=== PATIENT | female | born 1995 | race Caucasian/White ===

== ENCOUNTER 2018-06-27 20:34 | Emergency (ER) | payer OTHER ==
[~2018-06-27] VITALS: Ht 160 cm; Wt 103.9 kg
[2018-06-27 20:41] VITALS: BP 140/90
--- NOTE | 2018-06-27 20:41 | NUR ---
TO BED # 12 AMBULATORY , REPORT GIVEN TO ANTONIETA ERICKSON
--- NOTE | 2018-06-27 20:50 | NUR ---
23/F PRESENTS TO ED, C/O L ANKLE PAIN, S/P L ANKLE INVERSION WHILE STEPPING DOWN STEPS IN [place], [id number]. L ANKLE WITH MILD SWELLING, -REDNESS, -ECCYMOSIS, ABLE TO BEAR WEIGHT, +CMS HX ANXIETY RX PAXIL OTC PAIN MED WITH LITTLE RELIEF.
[2018-06-27] MEDS ORDERED: KETOROLAC 30 MG/ML VIAL IM ONE (21:20)
[2018-06-27 21:45] VITALS: BP 131/52
== END 2018-06-27 21:45 | disposition home or self-care (01) ==
LOC: MED 20:34
DX: S93.402A Sprain of unspecified ligament of left ankle, initial encounter (principal); X58.XXXA Exposure to other specified factors, initial encounter; Y93.89 Activity, other specified; Y92.89 Other specified places as the place of occurrence of the external cause; Y99.8 Other external cause status
CPT/HCPCS: 73610; 96372; 99283; J1885; Q0092

== ENCOUNTER 2019-07-22 18:47 | Emergency (ER) | payer OTHER ==
[~2019-07-22] VITALS: Ht 160 cm; Wt 74.8 kg
--- NOTE | 2019-07-22 18:51 | NUR ---
PT AMBULATED TO BED 11, STEADY GAIT.
[2019-07-22 18:55] VITALS: BP 142/68
--- NOTE | 2019-07-22 18:58 | NUR ---
TRIAGE COMPLEDTED BY MORGAN ERICKSON
--- NOTE | 2019-07-22 19:01 | NUR ---
24/ C/O FEELING WEAKNESS, N/V, CARDONA, DIZZINESS X 2 WEEKS S/P STOPPING SELF-DISCONTINUING PAXIL (FOR ANXIETY) 2 WEEKS AGO. PT D/C PAXIL BECAUSE "I HAD SIDE EFFECTS...I FELT TIRED ON PAXIL". LAST VOMITUS 30 MINUTES GATEKEEPER. EXPERIENCES N/V AFTER MEALS. STATES 5/10 FRONTAL CARDONA, CONTINUOUS X 2 WEEKS BUT VARYING IN INTENSITY, WITH PHOTOPHOBIA. HX- ANXIETY
--- NOTE | 2019-07-22 19:01 | NUR ---
DENIES FEELING ANXIOUS AT THIS TIME
--- NOTE | 2019-07-22 19:07 | NUR ---
RECEIVED REPORT FROM GEORGINA JONES. ASSUMED CARE OF PT.
[2019-07-22 19:37] VITALS: BP 142/68
--- NOTE | 2019-07-22 19:37 | NUR ---
Patient discharged with v/s stable. Written and verbal after care instructions given and explained. Patient alert, oriented and verbalized understanding of instructions. Ambulatory with steady gait. All questions addressed prior to discharge. ID band removed. Patient advised to follow up with PMD. Rx of atarax and zofran given. Patient educated on indication of medication including possible reaction and side effects. Opportunity to ask questions provided and answered.
== END 2019-07-22 19:37 | disposition home or self-care (01) ==
LOC: MED 18:47
DX: R11.2 Nausea with vomiting, unspecified (principal); R51 Headache; R42 Dizziness and giddiness; F41.9 Anxiety disorder, unspecified
CPT/HCPCS: 81002; 81025; 99283

== ENCOUNTER 2020-10-27 20:02 | Emergency (ER) | payer OTHER ==
[~2020-10-27] VITALS: Ht 160 cm; Wt 113.9 kg
[2020-10-27 20:13] VITALS: BP 138/69
[2020-10-27] MEDS ORDERED: ONDANSETRON 4 MG ODT PO ONE (20:25)
[2020-10-27] MEDS ORDERED: ACETAMINOPHEN EXTRA STRENGTH 500 MG TAB PO ONE (20:25)
[2020-10-27] MEDS ORDERED: ONDA4TAB PO (20:40)
[2020-10-27] MEDS ORDERED: ACET-10509 PO (20:40)
[2020-10-27 21:35] VITALS: BP 138/69
== END 2020-10-27 21:35 | disposition home or self-care (01) ==
LOC: MED 20:02
DX: B34.9 Viral infection, unspecified (principal); Z20.822 Contact with and (suspected) exposure to COVID-19; R11.2 Nausea with vomiting, unspecified; Z79.899 Other long term (current) drug therapy
CPT/HCPCS: 81002; 81025; 99283; Q0162; U0003

== ENCOUNTER 2021-06-19 00:40 | Emergency (ER) | payer OTHER ==
[~2021-06-19] VITALS: Ht 160 cm; Wt 103.4 kg
[~2021-06-19 00:40] MED LIST: ACET-10509 PO; ONDA4TAB PO
[2021-06-19 00:53] VITALS: BP 123/82
--- NOTE | 2021-06-19 01:08 | NUR ---
Ambulatory to bed 12 and change to a gown.
--- NOTE | 2021-06-19 01:22 | NUR ---
Rectal exam performed per Dr. Saucedo with GEORGINA Trevino at bedside during procedure. Patient tolerated well.
[2021-06-19] MEDS ORDERED: HYDR25SU91 RC (01:34)
--- NOTE | 2021-06-19 01:44 | NUR ---
PATIENT CLEARED FOR DISHCARGE AT THIS TIME. ADVISED TO FOLLOW UP [id number] PCP AND RETURN IF CONDITION WORSENS. NO OTHER COMPLAITNS OR CONECRNS FOLLOWING [facility]ARGE TEACHING.
[2021-06-19 01:45] VITALS: BP 119/71
== END 2021-06-19 01:44 | disposition home or self-care (01) ==
LOC: MED 00:40
DX: K64.4 Residual hemorrhoidal skin tags (principal); Z79.899 Other long term (current) drug therapy
CPT/HCPCS: 99283

== ENCOUNTER 2023-11-12 15:51 | Emergency (ER) | payer OTHER ==
[~2023-11-12] VITALS: Ht 160 cm; Wt 117.5 kg
[~2023-11-12 15:51] MED LIST changes: +HYDR25SU91 RC
[2023-11-12 15:57] VITALS: BP 139/100; PULSE 94; RESP 16; TEMP 97.8; O2SAT 98
[2023-11-12] MEDS: NACL 0.9% 1,000 ML IV ONE (16:33)
[2023-11-12] MEDS: MECLIZINE 25 MG TAB PO ONE (16:33)
[2023-11-12 17:15] LABS: BASOPHILS # (AUTO) 0.1 K/uL (0.00-0.22); BASOPHILS % (AUTO) 0.5 % (0.0-2.0); EOSINOPHILS # (AUTO) 0.6 K/uL (0-0.4); EOSINOPHILS % (AUTO) 4.7 % (0.0-4.0); HEMATOCRIT 42.2 % (36-48); HEMOGLOBIN 13.6 g/dL (12.0-16.0); LYMPHOCYTES # (AUTO) 2.9 K/uL (2.5-16.5); LYMPHOCYTES % (AUTO) 23.8 % (20.5-51.1); MEAN CORPUSCULAR HEMOGLOBIN 26 pg (27-31); MEAN CORPUSCULAR HGB CONC 32 g/dL (33-37); MEAN CORPUSCULAR VOLUME 81.5 fL (80-94); MONOCYTES # (AUTO) 0.8 K/uL (0.8-1.0); MONOCYTES % (AUTO) 6.7 % (1.7-9.3); NEUTROPHILS # (AUTO) 7.9 K/uL (1.8-7.7); NEUTROPHILS % (AUTO) 64.3 % (42.2-75.2); PLATELET COUNT (AUTO) 359 K/uL (140-450); RED BLOOD CELL COUNT(AUTO) 5.18 MIL/uL (4.20-5.40); RED CELL DISTRIBUTION WIDTH 14.1 % (11.6-13.7); WHITE BLOOD COUNT (AUTO) 12.2 K/uL (4.8-10.8)
[2023-11-12 17:25] LABS: ANION GAP 14.7 (8-16); CALCIUM 8.5 mg/dL (8.5-10.1); CARBON DIOXIDE 25.1 mmol/L (21-32); CREATININE 0.7 mg/dL (0.6-1.3); POTASSIUM 3.8 mmol/L (3.5-5.1)
[2023-11-12] MEDS ORDERED: MECL-303 PO (17:41)
[2023-11-12 18:07] VITALS: BP 119/67; PULSE 93; RESP 20; TEMP 98.1; O2SAT 98
== END 2023-11-12 18:09 | disposition home or self-care (01) ==
LOC: MED 15:51
DX: R42 Dizziness and giddiness (principal); F41.9 Anxiety disorder, unspecified; F32.A Depression, unspecified; Z79.1 Long term (current) use of non-steroidal anti-inflammatories (NSAID); Z79.899 Other long term (current) drug therapy
CPT/HCPCS: 36415; 80048; 81025; 85025; 93005; 96360; 99284; J7030; J8597